=== PATIENT | female | born 1970 | race Caucasian/White ===

== ENCOUNTER 2016-09-08 11:20 | Emergency (ER) | payer BC ==
[~2016-09-08] VITALS: Ht 170.2 cm; Wt 93.4 kg
[2016-09-08] MEDS ORDERED: ASPIRIN 81 MG CHEW (CHILDREN'S ASA) PO ONE (11:35)
[2016-09-08] MEDS ORDERED: SODIUM CHLORIDE 250 ML IV PRN (11:35)
[2016-09-08] MEDS ORDERED: ONDANSETRON 2 MG/ML (Z0FRAN) 2 ML VIAL IV ONE (11:35)
[2016-09-08] MEDS ORDERED: SODIUM CHLORIDE FLUSH 3 ML SYR IV PRN (11:35)
[2016-09-08] MEDS ORDERED: SODIUM CHLORIDE FLUSH 10 ML SYR IV PRN (11:35)
[2016-09-08] MEDS: NITROGLYCERIN SUBLINGUAL 0.4 MG (NITROQUICK) TABLET SL PRN ×3 (11:44→11:56)
[2016-09-08 11:45] LABS: BASOPHILS % (AUTO) 1 % (0-2); EOSINOPHILS # (AUTO) 0.2 10^3uL; EOSINOPHILS % (AUTO) 2 % (0-4); LYMPHOCYTES # (AUTO) 2.8 X10^3; MEAN CORPUSCULAR HEMOGLOBIN 27.9 PG (26.0-34.0); MEAN CORPUSCULAR HGB CONC 34.5 g/dL (31.0-37.0); MEAN CORPUSCULAR VOLUME 81 FL (80-100); MEAN PLATELET VOLUME 9.9 FL (6.0-9.5); MONOCYTES # (AUTO) 0.8 X10^3; MONOCYTES % (AUTO) 8 % (3-11); NEUTROPHILS % (AUTO) 61 % (51-67); PLATELET COUNT 382 10^3uL (150-450); WHITE BLOOD COUNT 9.95 10^3uL (4.0-11.0)
[2016-09-08 11:55] LABS: ALBUMIN 4.4 g/dL (3.4-5.0); ALKALINE PHOSPHATASE 87 U/L (38-126); ANION GAP 14.8 MEQ/L (3-15); BUN/CREATININE RATIO 17 (10-20); CALCULATED IONIZED CALCIUM 4.1 mg/dL (3.8-4.6); CREATINE KINASE 62 U/L (30-135); MAGNESIUM* 2.3 mg/dL (1.6-2.3); TOTAL PROTEIN 7.6 g/dL (6.4-8.5)
--- NOTE | 2016-09-08 12:50 | NUR ---
DR MARTINEZ IS SPEAKING WITH HOSPITALIST AT [facility], DR MATHEW. DR MATHEW ACCEPTS PT TO TRANSFER TO [facility].
--- NOTE | 2016-09-08 12:52 | Diagnostic Imaging Report ---
INDICATION: Chest pain. COMPARISON: None available. TECHNIQUE: Single frontal radiograph of the chest dated September 08, 2016 FINDINGS: The cardiac silhouette is within normal limits. No significant pulmonary vascular congestion. 5 mm nodular density seen overlying the right upper lung. Otherwise, lungs appear clear. No pleural effusion. No pneumothorax. No acute osseous abnormality. IMPRESSION: 1. No acute cardiopulmonary abnormality. 2. Suggestion of a 5 mm nodular density overlying the right upper lung. Although this could simply relate to a rib end or pulmonary vessel, pulmonary nodule should be considered. Comparison to prior imaging is recommended. Additionally, dedicated frontal and lateral radiographs of the chest could help further evaluate this questionable nodular density. Dictated by: Dictated on workstation # [id number]
[2016-09-08 13:05] VITALS: BP 103/44
[2016-09-19] MEDS ORDERED: PANT40TA3 PO (13:37)
== END 2016-09-08 13:10 | disposition short-term general hospital (02) ==
LOC: ED 11:21
DX: R07.9 Chest pain, unspecified (principal); R91.1 Solitary pulmonary nodule
CPT/HCPCS: 36415; 71010; 80053; 82550; 82553; 83735; 83880; 84484; 85025; 85610; 85730; 93005; 96374; 99285; J2405; 99291

== ENCOUNTER → 2016-09-08 | Outpatient (CLI) | payer BC ==
[~2016-09-08] MED LIST: PANT40TA3 PO
== END ==
LOC: EMS 13:16
PROVIDERS: ATTEND Emergency Medicine
DX: R07.89 Other chest pain (principal)

== ENCOUNTER → 2016-09-19 | Outpatient (CLI) | payer BC | LOC: RAD 08:59 | PROVIDERS: ATTEND Family Medicine | DX: N64.4 Mastodynia (principal) ==

== ENCOUNTER 2016-09-20 09:27 | Day surgery (SDC) | payer BC ==
[~2016-09-20] VITALS: Ht 167.6 cm; Wt 93.0 kg
[~2016-09-20 09:27] MED LIST changes: +LACTATED RINGERS 1,000 ML IV SCH; -PANT40TA3 PO; +SODIUM CHLORIDE FLUSH 3 ML SYR IV PRN
[2016-09-20 09:37] VITALS: BP 115/68
[2016-09-20] MEDS ORDERED: MIDAZOLAM 2 MG/2 ML (VERSED) VIAL ONE (09:45)
[2016-09-20] MEDS ORDERED: PROPOFOL 20 ML IV ONE (09:45)
[2016-09-20] MEDS ORDERED: ALFENTANIL 500 MCG/ML (ALFENTA) 5 ML AMP IV ONE (09:45)
[2016-09-20] MEDS ORDERED: SIMETHICONE 40 MG/0.6 ML (MYLICON DROPS) ORAL SYRINGE ONE (10:03)
[2016-09-20] MEDS ORDERED: LIDOCAINE 4% TOPICAL 4.5 ML SYR ONE (10:03)
[2016-09-20 12:07] VITALS: BP 121/79
[2016-09-20 12:30] VITALS: BP 117/74
== END 2016-09-20 12:25 | disposition home or self-care (01) ==
LOC: ASC 09:27
PROVIDERS: ATTEND Surgery
DX: K29.30 Chronic superficial gastritis without bleeding (principal); K20.9 Esophagitis, unspecified; R07.9 Chest pain, unspecified
CPT/HCPCS: 43239; J2250; J7120